=== PATIENT | female | born 1990 | race Caucasian/White ===

== ENCOUNTER 2018-05-05 15:44 | Emergency (ER) | payer MEDICAID ==
[~2018-05-05] VITALS: Ht 165.1 cm; Wt 83.0 kg
[2018-05-05 17:17] LABS: BASOPHILS # (AUTO) 0.01 x10^3/uL (0-0.1); BASOPHILS % (AUTO) 0 % (0-1); EOSINOPHILS # (AUTO) 0.01 x10^3/uL (0-0.4); EOSINOPHILS % (AUTO) 0 % (1-7); LYMPHOCYTES # (AUTO) 1.67 x10^3/uL (1-3.4); LYMPHOCYTES % (AUTO) 14 % (22-44); MD NO; MEAN CORPUSCULAR HEMOGLOBIN 28.5 pg (27.0-34.8); MEAN CORPUSCULAR HGB CONC 33.1 g/dL (32.4-35.8); MEAN CORPUSCULAR VOLUME 86.2 fL (80-100); MEAN PLATELET VOLUME 8.4 fL (7.4-10.4); MONOCYTES % (AUTO) 3 % (2-9); NEUTROPHILS # (AUTO) 9.78 x10^3/uL (1.8-6.8); NEUTROPHILS % (AUTO) 83 % (42-75); PLATELET COUNT 304 x10^3/uL (130-400); RED CELL DISTRIBUTION WIDTH 15.1 % (9.6-15.2)
[2018-05-05 17:29] LABS: ALANINE AMINOTRANSFERASE 29 U/L (12-78); ALBUMIN 4.1 g/dL (3.4-5.0); ANION GAP 10 mmol/L (5-15); CALCIUM 9.3 mg/dL (8.5-10.1); CHLORIDE 107 mmol/L (98-107); CREATININE 0.94 mg/dL (0.55-1.02)
[2018-05-05 17:31] LABS: ALKALINE PHOSPHATASE 92 U/L (45-117); BILIRUBIN,TOTAL 0.4 mg/dL (0.2-1.0)
[2018-05-05 19:01] LABS: MICROSCOPIC AUTO
[2018-05-05 19:07] LABS: CULTURE INDICATED? NO
[2018-05-05] MEDS ORDERED: HYDROcodone/APAP 5/325 TABLET PO ONE (19:30)
[2018-05-05] MEDS ORDERED: HYDROcodone/APAP 5/325 TABLET ONE (19:35)
[2018-05-05 22:27] VITALS: BP 124/76
== END 2018-05-05 22:33 | disposition home or self-care (01) ==
LOC: ED 22:27
DX: O07.4 Failed attempted termination of pregnancy without complication (principal); R06.02 Shortness of breath
CPT/HCPCS: 36415; 74018; 76830; 80053; 81001; 84702; 85025; 99285

== ENCOUNTER 2018-12-21 20:18 | Emergency (ER) | payer MEDICAID ==
[~2018-12-21] VITALS: Ht 165.1 cm; Wt 75.8 kg
[2018-12-21 20:25] VITALS: BP 124/83
[2018-12-21] MEDS ORDERED: HYDROcodone/APAP 5/325 TABLET PO STA (20:40)
[2018-12-21] MEDS ORDERED: HYDROcodone/APAP 5/325 TABLET ONE (20:41)
== END 2018-12-21 21:04 | disposition home or self-care (01) ==
LOC: ED 20:45
DX: K08.89 Other specified disorders of teeth and supporting structures (principal)
CPT/HCPCS: 99283